=== PATIENT | male | born 1985 | race Caucasian/White ===

== ENCOUNTER 2020-11-01 11:32 | Emergency (ER) | payer MEDICAID, OTHER ==
[2020-11-01 11:41] VITALS: BP 153/60
--- NOTE | 2020-11-01 11:42 | ED General ---
General Chief Complaint: General Problems/Pain Stated Complaint: KNOT ON BACK History of Present Illness Date Seen by Provider: Nov 01, 2020 Time Seen by Provider: 11:42 Initial Comments Patient with a cutaneous abscess on his middle back. Reports has been there for couple days. Reports he has been opening up and having a drain for the last couple days. Patient has another small one on his left chest. He denies any fevers chills or other systemic complaints. He does have a history of recurrent occasional abscesses per him. Allergies and Home Medications Patient Home Medication List Home Medication List Reviewed: Yes Review of Systems Review of Systems Constitutional: no symptoms reported EENTM: no symptoms reported Respiratory: no symptoms reported Cardiovascular: no symptoms reported Gastrointestinal: no symptoms reported Genitourinary: no symptoms reported Skin: see HPI Psychiatric/Neurological: No Symptoms Reported Hematologic/Lymphatic: No Symptoms Reported Past Fpjisld-Ebkgzx-Irsbzr Hx Past Med/Social Hx: Reviewed Nursing Past Med/Soc Hx Physical Exam Vital Signs Capillary Refill : Height, Weight, BMI Height: '" Weight: lbs. oz. kg; BMI Method: General Appearance: No Apparent Distress, WD/WN Respiratory: Lungs Clear Cardiovascular: Regular Rate, Rhythm, No Edema Gastrointestinal: Non Tender Back: No Vertebral Tenderness Extremity: Normal Capillary Refill Neurologic/Psychiatric: Other (irratable, rude, short with staff ) Skin: Other (Small abscess with induration and cellulitis on his upper back.) Progress/Results/Core Measures Suspected Sepsis SIRS Temperature: Pulse: Respiratory Rate: Blood Pressure / Mean: Results/Orders Vital Signs/I&O Capillary Refill : Departure Impression Primary Impression: Abscess of skin and subcutaneous tissue Qualified Codes: L02.212 - Cutaneous abscess of back [any part, except buttock] Disposition: HOME, SELF-CARE Condition: Stable Departure-Patient Inst. Referrals: SELF,KEVIN ALLEN (PCP/Family) Primary Care Physician Patient Instructions: Boil, Adult ED Add. Discharge Instructions: Warm compress to affected area for 20 minutes 3-4 times a day All discharge instructions reviewed with patient and/or family. Voiced understanding. Scripts Sulfamethoxazole/Trimethoprim (Bactrim Ds Tablet) 1 Each Tablet 1 EACH PO BID, #20 TAB Prov: LIBERTAD JURADO DO 11/01/20 LIBERTAD JURADO DO Nov 01, 2020 11:42
[2020-11-01] MEDS ORDERED: SULF1TAB35 PO (11:53)
== END 2020-11-01 12:08 | disposition home or self-care (01) ==
LOC: ER FS 11:35
DX: Z48.02 Encounter for removal of sutures (principal)
CPT/HCPCS: 87070; 87077; 87186; 87205; 99282

== ENCOUNTER 2020-11-05 06:08 | Emergency (ER) | payer MEDICAID ==
[~2020-11-05] VITALS: Ht 175 cm; Wt 81.6 kg
[~2020-11-05 06:08] MED LIST: SULF1TAB35 PO
--- NOTE | 2020-11-05 06:31 | ED Integumentary General ---
General Chief Complaint: Skin/Wound Problems Stated Complaint: PASSING OUT Source: patient Exam Limitations: no limitations (YAN ALEMAN DO) History of Present Illness Date Seen by Provider: Nov 05, 2020 Time Seen by Provider: 06:25 Initial Comments 34-year-old male presents after passing out with shortness morning. He was taking hot shower due to the pain of the abscesses on his back which has been present for almost 2 weeks. Seen a week ago and had incision and draining and was sent home with antibiotic which he never filled. Patient is a diabetic. Started running a fever recently. (YAN ALEMAN DO) Initial Comments 34 yo male presenting with syncope/fainting episode in the shower this morning. He was having pain and was trying to push on the abscess on his left upper back while in hot shower and got light headed and then passed out. He states he is living out of his Van with his girlfriend right now and staying in his uncle's driveway. He is a diabetic and has not been checking his sugars lately. He has been getting a lot of pus from the wound on his back but it keeps getting larger and more painful over the last week. He did not fill the prescription for Bactrim DS from last ED visit due to it being sent to [facility] and today he reports that they can not go on [facility] property so they were not able to fill script. However, from review of sensitivity done on culture from ED visit the MRSA that grew out of wound is resistant to Bactrim. He denies history of MRSA but his Girlfriend states she has had MRSA and gets Hidradenitis and issues with her diabetes as well. Timing/Duration: just prior to arrival (syncopal episode), getting worse (abscess/infection to back getting worse over the last week) Location: torso (left upper back) Possible Cause: no cause identified Associated Symptoms: fever; No flushing, No headache, No hives, No jaundice; malaise; No nasal congestion, No numbness, No pallor, No paresthesia, No petechiae, No sore throat, No tingling (MAURA BANUELOS MD) Allergies and Home Medications Allergies Coded Allergies: No Known Drug Allergies (Unverified , 11/01/20) Home Medications Doxycycline Hyclate 100 Mg Tablet, 100 MG PO BID Prescribed by: MAURA BANUELOS on 11/05/20 0735 Hydrocodone/Acetaminophen 1 Each Tablet, 1 EACH PO Q4H PRN for PAIN-SEVERE (8- 10) Prescribed by: MAURA BANUELOS on 11/05/20 0820 Mupirocin 22 Gm Oint...g., 0.5 GM TP BID Apply thin layer over open areas on infected area of back twice a day for 10 days. Cover with bandage/bandaid. Prescribed by: MAURA BANUELOS on 11/05/20 0819 Patient Home Medication List Home Medication List Reviewed: Yes (YAN ALEMAN DO) Home Medication List Reviewed: Yes (MAURA BANUELOS MD) Review of Systems Review of Systems Constitutional: fever, malaise, weakness Respiratory: No cough, No short of breath Cardiovascular: No chest pain, No edema, No palpitations; syncope Gastrointestinal: No abdominal pain, No nausea, No vomiting Musculoskeletal: back pain; No joint swelling, No neck pain Skin: see HPI, lesions, other (large abscess left upper back) Psychiatric/Neurological: Denies Headache, Denies Numbness, Denies Paresthesia (YAN ALEMAN DO) Constitutional: chills EENTM: no symptoms reported Genitourinary: no symptoms reported Endocrine: Increased Thrist, Increased Urine (MAURA BANUELOS MD) Past Ywgolea-Pciwog-Jihkqq Hx Past Med/Social Hx: Reviewed Nursing Past Med/Soc Hx (YAN ALEMAN DO) Past Med/Social Hx: Reviewed and Corrections made (MAURA BANUELOS MD) Patient Social History 2nd Hand Smoke Exposure: Yes Recent Hopitalizations: No (YAN ALEMAN DO) Smoking Status: Current Everyday Smoker Type Used: Cigarettes (MAURA BANUELOS MD) Seasonal Allergies Seasonal Allergies: No (YAN ALEMAN DO) Past Medical History Surgeries: No Respiratory: No Cardiac: No Neurological: No Genitourinary: No Gastrointestinal: No Musculoskeletal: No Endocrine: Yes Diabetes, Insulin dep HEENT: No Cancer: No Psychosocial: No Integumentary: No Blood Disorders: No (YAN ALEMAN DO) Respiratory: Yes COPD Cardiac: Yes High Cholesterol, Hypertension Neurological: No Genitourinary: No Gastrointestinal: No Musculoskeletal: No Endocrine: Yes Diabetes, Insulin dep HEENT: No Cancer: No Psychosocial: Yes Anxiety, Bipolar, Depression Integumentary: Yes (MRSA Infections) (MAURA BANUELOS MD) Family Medical History Reviewed and Corrections made (MAURA BANUELOS MD) Heart Disease, CAD Under 55 Years Old, CAD Over 55 Years Old, COPD, Diabetes, Hypertension, Lung Disease, Psychiatric Problems, Renal Disease, Stroke (MAURA BANUELOS MD) Physical Exam Vital Signs Vital Signs - First Documented 11/05/20 06:27 Temp 37.5 Pulse 118 Resp 20 B/P (MAP) 145/99 (114) Pulse Ox 93 O2 Delivery Room Air (MAURA BANUELOS MD) Vital Signs Capillary Refill : (YAN ALEMAN DO) General Appearance: WD/WN, no apparent distress Cardiovascular: normal peripheral pulses, regular rate, rhythm, no edema Respiratory: chest non-tender, lungs clear, normal breath sounds Gastrointestinal: non tender, soft Back: other (large abscess left upper back, moderate induration, not pointing) Extremities: non-tender, normal inspection Neurologic/Psychiatric: alert, normal mood/affect, oriented x 3 (YAN ALEMAN DO) Skin Problem Location: torso (left upper back) Skin Problem Character: abscess, erythema, swelling, tenderness, warm (MAURA BANUELOS MD) Procedures/Interventions I&D : Site: left upper back Blade Size: 11 I & D Procedure: sterile dressing applied Progress After obtaining verbal consent from the patient he was given 50 mcg of fentanyl for pain. The wound on his back was measured as 13.8 cm craniocaudal and 9.7 cm across. He had the wound cleaned with ChloraPrep swabs. Then using 1% plain lidocaine a total of 1.5 mL were infiltrated for anesthetic effect. Then using an 11 blade scalpel a single stab incision was made just inferior to the more open area on the abscess. Then using gentle pressure to express the infection with a moderate to large amount of purulent and serosanguineous drainage was expressed. Patient tolerated procedure well without any immediate complication. He did start to feel lightheaded during the procedure and a small break was taken of a minute or 2 before expressing more infection. A clean dry sterile dressing was applied and a sterile gauze and taped with paper tape to hold in place. Counseled on follow-up and return precautions. (MAURA BANUELOS MD) Progress/Results/Core Measures Results/Orders Lab Results Laboratory Tests Test 11/05/20 06:16 11/05/20 06:22 11/05/20 08:20 Range/Units Glucometer 348 H 225 H 70-110 MG/DL White Blood Count 14.6 H 4.3-11.0 10^3/uL Red Blood Count 5.50 4.35-5.85 10^6/uL Hemoglobin 15.7 13.3-17.7 G/DL Hematocrit 44 40-54 % Mean Corpuscular Volume 81 80-99 FL Mean Corpuscular Hemoglobin 29 25-34 PG Mean Corpuscular Hemoglobin Concent 35 32-36 G/DL Red Cell Distribution Width 12.2 10.0-14.5 % Platelet Count 173 130-400 10^3/uL Mean Platelet Volume 9.8 7.4-10.4 FL Immature Granulocyte % (Auto) 0 % Neutrophils (%) (Auto) 83 H 42-75 % Lymphocytes (%) (Auto) 8 L 12-44 % Monocytes (%) (Auto) 9 0-12 % Eosinophils (%) (Auto) 0 0-10 % Basophils (%) (Auto) 0 0-10 % Neutrophils # (Auto) 12.1 H 1.8-7.8 X 10^3 Lymphocytes # (Auto) 1.1 1.0-4.0 X 10^3 Monocytes # (Auto) 1.3 H 0.0-1.0 X 10^3 Eosinophils # (Auto) 0.0 0.0-0.3 10^3/uL Basophils # (Auto) 0.1 0.0-0.1 10^3/uL Immature Granulocyte # (Auto) 0.1 0.0-0.1 10^3/uL Neutrophils % (Manual) 76 % Lymphocytes % (Manual) 11 % Monocytes % (Manual) 4 % Band Neutrophils 9 % Blood Morphology Comment NORMAL Sodium Level 128 L 135-145 MMOL/L Potassium Level 3.4 L 3.6-5.0 MMOL/L Chloride Level 88 L 98-107 MMOL/L Carbon Dioxide Level 27 21-32 MMOL/L Anion Gap 13 5-14 MMOL/L Blood Urea Nitrogen 8 7-18 MG/DL Creatinine 0.64 0.60-1.30 MG/DL Estimat Glomerular Filtration Rate > 60 BUN/Creatinine Ratio 13 Glucose Level 343 H 70-105 MG/DL Lactic Acid Level 1.25 0.50-2.00 MMOL/L Calcium Level 9.0 8.5-10.1 MG/DL Corrected Calcium 9.1 8.5-10.1 MG/DL Total Bilirubin 0.7 0.1-1.0 MG/DL Aspartate Amino Transf (AST/SGOT) 9 5-34 U/L Alanine Aminotransferase (ALT/SGPT) 10 0-55 U/L Alkaline Phosphatase 93 40-136 U/L Total Protein 7.1 6.4-8.2 GM/DL Albumin 3.9 3.2-4.5 GM/DL (MAURA BANUELOS MD) My Orders Orders - MAURA BANUELOS MD Fentanyl Inj (Sublimaze Injection) (11/05/20 07:29) Ns Iv 1000 Ml (Sodium Chloride 0.9%) (11/05/20 07:29) Lidocaine 1% Inj 20 Ml (Xylocaine 1% Inj (11/05/20 07:29) Insulin (Regular) Human (Novolin R (Per (11/05/20 07:29) Acetaminophen Tablet (Tylenol Tablet) (11/05/20 07:31) (MAURA BANUELOS MD) Medications Given in ED Current Medications Medications Dose Ordered Sig/Marissa Route Start Time Stop Time Status Last Admin Dose Admin Vancomycin HCl 1000 mg/Sodium Chloride 250 ml @ 250 mls/hr ONCE ONCE IV 11/05/20 06:45 11/05/20 07:44 DC 11/05/20 06:48 250 MLS/HR (MAURA BANUELOS MD) Vital Signs/I&O 11/05/20 11/05/20 11/05/20 06:27 07:47 07:48 Temp 37.5 38.7 37.5 Pulse 118 Resp 20 B/P (MAP) 145/99 (114) Pulse Ox 93 O2 Delivery Room Air (MAURA BANUELOS MD) Progress Progress Note #1: Time: 07:00 Progress Note I assumed care of patient from Dr. Aleman at shift change. Patient has elevated WBC count but his lactic acid is normal. He does have elevated glucose. Treat with Regular insulin 10 units IV for his hyperglycemia. Obtained verbal consent for I&D to the wound. Fentanyl 50 mcg to help with pain as he is tolerating the Vancomycin. Susceptibility of the MRSA culture shows he should be able to respond to Doxycycline. Pt requesting pain medicine for home as well and stating he does not want to be admitted at this time. Progress Note #2: Time: 07:38 Progress Note pt has a fever so will give acetaminophen to treat that. give 2nd liter of NS to help with tachycardia and hyperglycemia. Pt states he feels he can go home and take antibiotic and pain medicine rather than needing admit. I advised him if not improving in 36-48 hours that he should return or seek medical care as he likely would need admit for IV antibiotics to clear up the infection. Will add on Bactroban for antibiotic ointment to treat his MRSA. Progress Note #3: Time: 08:04 Progress Note Patient tolerated I&D well without immediate complication. Moderate to large amount of purulent and bloody drainage from wound obtained. No new cultures sent since just had this done. Counseled on follow up and return precautions. St ressed importance of follow up with clinic and return for admit if worsening or not improving by end of week/weekend When reviewing prescriptions for home he states he had tried a Hydrocodone 5 mg from family member and it was not helpful for his pain so he requested higher dose. Will change to 10 mg and stressed he has to get antibiotic to treat the infection. (MAURA BANUELOS MD) Transfer of Care Time: 07:00 Care transferred to: Dr Banuelos @ shift change (YAN ALEMAN DO) Departure Impression Primary Impression: MRSA (methicillin resistant Staphylococcus aureus) infection Additional Impressions: Abscess Syncope Qualified Codes: R55 - Syncope and collapse Hyperglycemia due to type 1 diabetes mellitus Disposition: 01 HOME, SELF-CARE Condition: Stable Departure-Patient Inst. Decision time for Depature: 08:16 (MAURA BANUELOS MD) Referrals: KEVIN SHETH MD (PCP/Family) Primary Care Physician Patient Instructions: Abscess Incision and Drainage ED, Boil, Adult ED, Fainting, Adult ED, High Blood Sugar, Adult ED, MRSA (DC) Add. Discharge Instructions: Take antibiotics until gone. Use antibiotic ointment twice a day over the open areas of the infection on your back and apply a bandage or dressing over it. Use Ibuprofen for pain and inflammation. Hydrocodone/Acetaminophen for severe pain. Apply warm pack to area for 10-15 minutes every few hours to help draw the infection out. If not improving or having worsening symptoms over the next 2-3 days then return or seek medical care for admit and IV antibiotics to treat for the MRSA infectio n Carefully watch your diet and use medicine as directed to treat for your diabetes. While fighting infection your sugar will run higher. All discharge instructions reviewed with patient and/or family. Voiced understanding. Scripts Mupirocin (Mupirocin) 22 Gm Oint...g. 0.5 GM TP BID for MRSA infection for 10 Days, #22 GM 0 Refills Apply thin layer over open areas on infected area of back twice a day for 10 days. Cover with bandage/bandaid. Prov: MAURA BANUELOS MD 11/05/20 Hydrocodone/Acetaminophen (Hydrocodone-Acetamin 10-325 mg) 1 Each Tablet 1 EACH PO Q4H PRN for PAIN-SEVERE (8-10) for 3 Days, #18 TAB 0 Refills Prov: MAURA BANUELOS MD 11/05/20 Doxycycline Hyclate (Doxycycline Hyclate) 100 Mg Tablet 100 MG PO BID for MRSA infection for 10 Days, #20 TAB 0 Refills Prov: MAURA BANUELOS MD 11/05/20 Images Torso/Trunk 1 - Cellulitis, Swelling, Tenderness, Other-See Progress Note Progress 13.8 cm craniocaudal x 9.7 cm across erythematous, warm, indurated, tender, swollen abscess to left upper back with a 5 mm diameter ulceration with yellow purulent material present more superior aspect of the abscess. No fluctuance noted. No drainage expressed with just palpation of the abscess. (MAURA BANUELOS MD) YAN ALEMAN DO Nov 05, 2020 06:31 MAURA BANUELOS MD Nov 05, 2020 07:31
[2020-11-05 06:40] LABS: BASOPHILS % (AUTO) 0 % (0-10); EOSINOPHILS % (AUTO) 0 % (0-10); HEMATOCRIT 44 % (40-54); HEMOGLOBIN 15.7 G/DL (13.3-17.7); LYMPHOCYTES # (AUTO) 1.1 X 10^3 (1.0-4.0); LYMPHOCYTES % (AUTO) 8 % (12-44); MEAN CORPUSCULAR HEMOGLOBIN 29 PG (25-34); MEAN CORPUSCULAR HGB CONC 35 G/DL (32-36); MEAN CORPUSCULAR VOLUME 81 FL (80-99); MEAN PLATELET VOLUME 9.8 FL (7.4-10.4); MONOCYTES # (AUTO) 1.3 X 10^3 (0.0-1.0); MONOCYTES % (AUTO) 9 % (0-12); NEUTROPHILS # (AUTO) 12.1 X 10^3 (1.8-7.8); NEUTROPHILS % (AUTO) 83 % (42-75); PLATELET COUNT 173 10^3/uL (130-400); WHITE BLOOD COUNT 14.6 10^3/uL (4.3-11.0)
[2020-11-05 06:41] LABS: BASOPHILS # (AUTO) 0.1 10^3/uL (0.0-0.1)
[2020-11-05] MEDS ORDERED: NS IV 1000 ML 1,000 ML IV SCH (06:45)
[2020-11-05] MEDS ORDERED: VANCOMYCIN INJECTION 1,000 MG in NS (IVPB) 250 ML IV ONE (06:45)
[2020-11-05 07:00] LABS: ALANINE AMINOTRANSFERASE 10 U/L (0-55); ALBUMIN 3.9 GM/DL (3.2-4.5); ALKALINE PHOSPHATASE 93 U/L (40-136); BILIRUBIN,TOTAL 0.7 MG/DL (0.1-1.0); BUN/CREATININE RATIO 13; CARBON DIOXIDE 27 MMOL/L (21-32); CHLORIDE 88 MMOL/L (98-107); CREATININE SERUM 0.64 MG/DL (0.60-1.30); GFR ESTIMATED > 60; GLUCOSE 343 MG/DL (70-105); POTASSIUM 3.4 MMOL/L (3.6-5.0); SODIUM 128 MMOL/L (135-145); TOTAL PROTEIN 7.1 GM/DL (6.4-8.2)
[2020-11-05 07:01] LABS: BAND NEUTROPHILS 9 %; LYMPHOCYTES % (MANUAL) 11 %; MONOCYTES % (MANUAL) 4 %; NEUTROPHILS % (MANUAL) 76 %; RBC MORPH NORMAL
[2020-11-05] MEDS ORDERED: fentaNYL INJ 100 MCG/2 ML AMP IVP STA (07:29)
[2020-11-05] MEDS ORDERED: NS IV 1000 ML 1,000 ML IV STA (07:29)
[2020-11-05] MEDS ORDERED: inSUlin (REGULAR) HUMAN 1 UNIT/0.01 ML (CHARGE PER UNIT) IV STA (07:29)
[2020-11-05] MEDS ORDERED: LIDOCAINE 1% INJ 20 ML 20 ML VIAL INJ STA (07:29)
[2020-11-05] MEDS ORDERED: ACETAMINOPHEN 500 MG TAB (TYLENOL) PO STA (07:31)
[2020-11-05] MEDS ORDERED: ACHD5005 PO (07:35)
[2020-11-05] MEDS ORDERED: DOXY100T2 PO (07:35)
[2020-11-05] MEDS ORDERED: MUPI22OI2 TP (08:19)
[2020-11-05] MEDS ORDERED: HYDR-3820 PO (08:19)
[2020-11-05 08:30] VITALS: BP 148/73
== END 2020-11-05 08:30 | disposition home or self-care (01) ==
LOC: EDUNIT# 06:08 → ER FS 06:09
DX: A49.02 Methicillin resistant Staphylococcus aureus infection, unspecified site (principal); L02.212 Cutaneous abscess of back [any part, except buttock and flank]; R55 Syncope and collapse; E10.65 Type 1 diabetes mellitus with hyperglycemia; J44.9 Chronic obstructive pulmonary disease, unspecified; I10 Essential (primary) hypertension; F17.210 Nicotine dependence, cigarettes, uncomplicated
CPT/HCPCS: 10060; 36415; 80053; 82947; 83605; 85007; 85027; 87040; 96374; 96375

== ENCOUNTER 2020-11-11 17:23 | Emergency (ER) | payer MEDICAID ==
[~2020-11-11 17:23] MED LIST changes: +ACHD5005 PO; +DOXY100T2 PO; +HYDR-3820 PO; +MUPI22OI2 TP
[2020-11-11] MEDS ORDERED: ACHD5005 PO (18:08)
[2020-11-11] MEDS ORDERED: DOXY100T2 PO (18:08)
--- NOTE | 2020-11-11 18:10 | ED Integumentary General ---
General Chief Complaint: Skin/Wound Problems Stated Complaint: BACK INFECTION Nursing Triage Note: Patient presents to the ED with c/o of abcess to his left upper back. Patient reports he has been seen in the ED two times prior to this visit and I & D to the wound. Patient reports that the abcess has improved with antibiotic use but has stopped draining. History of Present Illness Date Seen by Provider: Nov 11, 2020 Time Seen by Provider: 17:30 Initial Comments 34-year-old male with a nonhealing abscess of the left upper back. Seen here recently for incision and drainage without packing and sent home with doxycycline. States fluid was drained until yesterday when it stopped now presents with increased pain, redness and swelling of the abscess. Did see his PCP yesterday, but no intervention was needed as it was draining spontaneously from the I&D. Currently taking doxycycline Allergies and Home Medications Allergies Coded Allergies: No Known Drug Allergies (Unverified , 11/01/20) Home Medications Doxycycline Hyclate 100 Mg Tablet, 100 MG PO BID Prescribed by: MAURA BANUELOS on 11/05/20 0735 Doxycycline Hyclate 100 Mg Tablet, 100 MG PO BID Prescribed by: YAN LANIER on 11/11/20 1808 Hydrocodone/Acetaminophen 1 Each Tablet, 1 EACH PO Q4H PRN for PAIN-SEVERE (8- 10) Prescribed by: MAURA BANUELOS on 11/05/20 0820 Hydrocodone/Acetaminophen 1 Each Tablet, 1 EACH PO Q4H Prescribed by: YAN LANIER on 11/11/20 1809 Mupirocin 22 Gm Oint...g., 0.5 GM TP BID Apply thin layer over open areas on infected area of back twice a day for 10 days. Cover with bandage/bandaid. Prescribed by: MAURA BANUELOS on 11/05/20 0819 Patient Home Medication List Home Medication List Reviewed: Yes Review of Systems Review of Systems Constitutional: No fever, No malaise, No weakness Respiratory: no symptoms reported Cardiovascular: no symptoms reported Musculoskeletal: back pain; No joint pain, No joint swelling, No neck pain Skin: see HPI, other (abscess, left upper back) Past Mifmgni-Muactg-Yuegyu Hx Patient Social History Tobacco Use?: Yes Substance use?: No Alcohol Use?: No Pt feels they are or have been: No Seasonal Allergies Seasonal Allergies: No Past Medical History Surgeries: No Respiratory: Yes COPD Cardiac: Yes High Cholesterol, Hypertension Neurological: No Genitourinary: No Gastrointestinal: No Musculoskeletal: No Endocrine: Yes Diabetes, Insulin dep HEENT: No Cancer: No Psychosocial: Yes Anxiety, Bipolar, Depression Integumentary: Yes (MRSA Infections) Blood Disorders: No Family Medical History Heart Disease, CAD Under 55 Years Old, CAD Over 55 Years Old, COPD, Diabetes, Hypertension, Lung Disease, Psychiatric Problems, Renal Disease, Stroke Physical Exam Vital Signs Vital Signs - First Documented 11/11/20 17:40 Temp 36.8 Pulse 96 Resp 16 B/P (MAP) 143/85 (104) Pulse Ox 97 O2 Delivery Room Air Capillary Refill : Less Than 3 Seconds General Appearance: WD/WN, no apparent distress Back: no CVA tenderness, no vertebral tenderness, other (large abscess left upper back. fluctuant, not-pointing. indurated w moderate erythema. NOT draining.) Neurologic/Psychiatric: no motor/sensory deficits, alert, normal mood/affect Skin: No jaundice, No rash Procedures/Interventions I&D : Blade Size: 11 I & D Procedure: betadine prep Packing/Drain: Idoform / Progress left upper back , large abscess, I&D with expression of large amount purulent fluid. packed and wound dressed Progress/Results/Core Measures Results/Orders My Orders Orders - YAN LANIER DO Hydrocodone/Apap 5/325 Tablet (Lortab 5 (11/11/20 18:15) Vital Signs/I&O 11/11/20 17:40 Temp 36.8 Pulse 96 Resp 16 B/P (MAP) 143/85 (104) Pulse Ox 97 O2 Delivery Room Air Blood Pressure Mean: 104 Progress Progress Note : Progress Note patient threatened me that "if I didn't give him some good pain medication he was going to kick my ass" Departure Impression Primary Impression: Abscess Disposition: 01 HOME, SELF-CARE Condition: Improved Departure-Patient Inst. Decision time for Depature: 18:07 Referrals: KEVIN SHETH MD (PCP/Family) Primary Care Physician Patient Instructions: Abscess Incision and Drainage ED Add. Discharge Instructions: Follow up with Dr Sheth in 2 days for re-packing your wound All discharge instructions reviewed with patient and/or family. Voiced understanding. Scripts Hydrocodone/Acetaminophen (Hydrocodone-Acetamin 5-325 mg) 1 Each Tablet 1 EACH PO Q4H for Abdominal Pain, #10 TAB Prov: YAN LANIER DO 11/11/20 Doxycycline Hyclate (Doxycycline Hyclate) 100 Mg Tablet 100 MG PO BID, #20 TAB 0 Refills Prov: YAN LANIER DO 11/11/20 YAN LANIER DO Nov 11, 2020 18:10
[2020-11-11] MEDS ORDERED: HYDROcodone/APAP 5 MG/325 MG (LORTAB) TAB PO ONE (18:15)
[2020-11-11 18:30] VITALS: BP 143/85
== END 2020-11-11 18:22 | disposition home or self-care (01) ==
LOC: EDUNIT# 17:23 → ER FS 17:24
DX: L02.212 Cutaneous abscess of back [any part, except buttock and flank] (principal); J44.9 Chronic obstructive pulmonary disease, unspecified; I10 Essential (primary) hypertension; E11.9 Type 2 diabetes mellitus without complications
CPT/HCPCS: 10061

== ENCOUNTER 2020-11-15 07:32 | Emergency (ER) | payer MEDICAID ==
[~2020-11-15 07:32] MED LIST changes: -SULF1TAB35 PO; +SULF1TAB38 PO
[2020-11-15 07:38] VITALS: BP 138/88
--- NOTE | 2020-11-15 07:44 | ED Integumentary General ---
General Chief Complaint: Skin/Wound Problems Stated Complaint: NEEDS BACK REPACKED History of Present Illness Date Seen by Provider: Nov 15, 2020 Time Seen by Provider: 07:39 Initial Comments 34 yo male presents with large abscess on back, pt presents for repacking of abscess. pt reports he is seeing his primary care provider everyother day for repacking and was told to present to ER for repacking over the weekend. pt currently on doxycyline. no fever, chills, n/v or other systemic complaints. Allergies and Home Medications Allergies Coded Allergies: No Known Drug Allergies (Unverified , 11/01/20) Home Medications Doxycycline Hyclate 100 Mg Tablet, 100 MG PO BID Prescribed by: MAURA BANUELOS on 11/05/20 0735 Doxycycline Hyclate 100 Mg Tablet, 100 MG PO BID Prescribed by: YAN LANIER on 11/11/20 1808 Hydrocodone/Acetaminophen 1 Each Tablet, 1 EACH PO Q4H PRN for PAIN-SEVERE (8- 10) Prescribed by: MAURA BANUELOS on 11/05/20 0820 Hydrocodone/Acetaminophen 1 Each Tablet, 1 EACH PO Q4H Prescribed by: YAN LANIER on 11/11/20 1809 Mupirocin 22 Gm Oint...g., 0.5 GM TP BID Apply thin layer over open areas on infected area of back twice a day for 10 days. Cover with bandage/bandaid. Prescribed by: MAURA BANUELOS on 11/05/20 0819 Patient Home Medication List Home Medication List Reviewed: Yes Review of Systems Review of Systems Constitutional: No chills, No fever EENTM: no symptoms reported Respiratory: no symptoms reported Cardiovascular: no symptoms reported Gastrointestinal: no symptoms reported Genitourinary: no symptoms reported Musculoskeletal: see HPI Skin: see HPI Psychiatric/Neurological: See HPI Hematologic/Lymphatic: See HPI Past Aeiigtr-Vsgqjx-Tlaykp Hx Seasonal Allergies Seasonal Allergies: No Past Medical History Surgeries: No Respiratory: Yes COPD Cardiac: Yes High Cholesterol, Hypertension Neurological: No Genitourinary: No Gastrointestinal: No Musculoskeletal: No Endocrine: Yes Diabetes, Insulin dep HEENT: No Cancer: No Psychosocial: Yes Anxiety, Bipolar, Depression Integumentary: Yes (MRSA Infections) Blood Disorders: No Family Medical History Heart Disease, CAD Under 55 Years Old, CAD Over 55 Years Old, COPD, Diabetes, Hypertension, Lung Disease, Psychiatric Problems, Renal Disease, Stroke Physical Exam Vital Signs Capillary Refill : General Appearance: WD/WN, no apparent distress Cardiovascular: normal peripheral pulses, regular rate, rhythm Respiratory: lungs clear, normal breath sounds Gastrointestinal: non tender, soft Back: no vertebral tenderness Extremities: normal range of motion, non-tender Skin Problem Location: torso (upper back ) Skin Problem Character: abscess Progress/Results/Core Measures Progress Progress Note : Progress Note pt with large subcut abscess on upper back with packing in place, packing was removed, copious amt of purulant drainage was expressed and abscess was repacked with gauze. pt tolerated well. pt to cont current abx, follow up with pcp next week for continued outpt care Departure Impression Primary Impression: Abscess of skin and subcutaneous tissue Qualified Codes: L02.212 - Cutaneous abscess of back [any part, except buttock] Disposition: HOME, SELF-CARE Condition: Stable Departure-Patient Inst. Referrals: SELF,KEVIN ALLEN (PCP/Family) Primary Care Physician Patient Instructions: Methicillin-Resistant Staphylococcus aureus (MRSA), Wound Care (DC) Add. Discharge Instructions: Follow up with your primary care provider mon or tues of next week. All discharge instructions reviewed with patient and/or family. Voiced understanding. LIBERTAD JURADO DO Nov 15, 2020 07:44
== END 2020-11-15 08:15 | disposition home or self-care (01) ==
LOC: EDUNIT# 07:32 → ER FS 07:35
DX: L02.212 Cutaneous abscess of back [any part, except buttock and flank] (principal); J44.9 Chronic obstructive pulmonary disease, unspecified; I10 Essential (primary) hypertension; E11.9 Type 2 diabetes mellitus without complications
CPT/HCPCS: 99282

== ENCOUNTER 2020-11-22 11:15 | Emergency (ER) | payer MEDICAID ==
[~2020-11-22] VITALS: Ht 182 cm; Wt 78.0 kg
[2020-11-22 11:24] VITALS: BP 132/97
--- NOTE | 2020-11-22 11:41 | ED Integumentary General ---
General Chief Complaint: Skin/Wound Problems Stated Complaint: BACK WOUND Nursing Triage Note: PT STATES HE IS HERE FOR HIS WEEKLY DRESSING CHANGE ON HIS UPPER BACK. Source: patient Exam Limitations: no limitations History of Present Illness Date Seen by Provider: Nov 22, 2020 Time Seen by Provider: 11:39 Initial Comments patient presents to "repack his abscess I&D". Has not seen his PCP as instructed, now multiple ER visits for the same. See previous notes for HPI Allergies and Home Medications Allergies Coded Allergies: No Known Drug Allergies (Unverified , 11/01/20) Home Medications Doxycycline Hyclate 100 Mg Tablet, 100 MG PO BID Prescribed by: MAURA BANUELOS on 11/05/20 0735 Doxycycline Hyclate 100 Mg Tablet, 100 MG PO BID Prescribed by: YAN LANIER on 11/11/20 1808 Hydrocodone/Acetaminophen 1 Each Tablet, 1 EACH PO Q4H PRN for PAIN-SEVERE (8- 10) Prescribed by: MAURA BANUELOS on 11/05/20 0820 Hydrocodone/Acetaminophen 1 Each Tablet, 1 EACH PO Q4H Prescribed by: YAN LANIER on 11/11/20 1809 Mupirocin 22 Gm Oint...g., 0.5 GM TP BID Apply thin layer over open areas on infected area of back twice a day for 10 days. Cover with bandage/bandaid. Prescribed by: MAURA BANUELOS on 11/05/20 0819 Patient Home Medication List Home Medication List Reviewed: Yes Review of Systems Review of Systems Constitutional: no symptoms reported Skin: other (skin abscess - I&D and packing) Past Ycbilfx-Jueghu-Xvsiji Hx Patient Social History Tobacco Use?: No Use of E-Cig and/or Vaping dev: No Substance use?: No Alcohol Use?: No Pt feels they are or have been: No Seasonal Allergies Seasonal Allergies: No Past Medical History Surgeries: No Respiratory: Yes COPD Cardiac: Yes High Cholesterol, Hypertension Neurological: No Genitourinary: No Gastrointestinal: No Musculoskeletal: No Endocrine: Yes Diabetes, Insulin dep HEENT: No Cancer: No Psychosocial: Yes Anxiety, Bipolar, Depression Integumentary: Yes (MRSA Infections) Blood Disorders: No Family Medical History Heart Disease, CAD Under 55 Years Old, CAD Over 55 Years Old, COPD, Diabetes, Hypertension, Lung Disease, Psychiatric Problems, Renal Disease, Stroke Physical Exam Vital Signs Vital Signs - First Documented 11/22/20 11:24 Temp 36.5 Pulse 103 Resp 16 B/P (MAP) 132/97 (109) Pulse Ox 96 O2 Delivery Room Air Capillary Refill : Less Than 3 Seconds General Appearance: WD/WN, no apparent distress Skin: normal color, warm/dry, other (healing wound- decreased erythema) Procedures/Interventions I&D : Progress Squeak Rattle And Leak Repairer- removed packing and re-inserted 6 inches of 1/2 iodoform gauze. pt tolerated well. minimal purulent wound drainage Progress/Results/Core Measures Results/Orders Vital Signs/I&O 11/22/20 11:24 Temp 36.5 Pulse 103 Resp 16 B/P (MAP) 132/97 (109) Pulse Ox 96 O2 Delivery Room Air Blood Pressure Mean: 109 Departure Impression Primary Impression: Wound check, abscess Disposition: 01 HOME, SELF-CARE Condition: Stable Departure-Patient Inst. Decision time for Depature: 12:19 Referrals: SELF,KEVIN ALLEN (PCP/Family) Primary Care Physician Patient Instructions: Wound Incision and Drainage (DC) Add. Discharge Instructions: follow up with your PCP for further care of your abscess All discharge instructions reviewed with patient and/or family. Voiced understanding. YAN LANIER DO Nov 22, 2020 11:41
== END 2020-11-22 12:30 | disposition home or self-care (01) ==
LOC: EDUNIT# 11:15 → ER FS 11:16
DX: Z48.01 Encounter for change or removal of surgical wound dressing (principal); J44.9 Chronic obstructive pulmonary disease, unspecified; I10 Essential (primary) hypertension; E11.9 Type 2 diabetes mellitus without complications

== ENCOUNTER → 2020-11-26 | Outpatient (CLI) | payer MEDICAID | LOC: WOUNDCARE 13:09 | PROVIDERS: ATTEND Surgery | DX: L72.3 Sebaceous cyst (principal); L02.219 Cutaneous abscess of trunk, unspecified | CPT/HCPCS: 99214 ==

== ENCOUNTER 2020-11-30 20:37 | Emergency (ER) | payer MEDICAID ==
[~2020-11-30] VITALS: Ht 182.9 cm; Wt 79.6 kg
[2020-11-30 20:53] VITALS: BP 125/83
--- NOTE | 2020-11-30 20:57 | ED General ---
General Stated Complaint: BACK PAIN History of Present Illness Date Seen by Provider: Nov 30, 2020 Time Seen by Provider: 20:45 Initial Comments 34-year-old male presents for dressing change for a large abscess on his back. Patient sees wound care. He is most have his wound repacked and changed every 2 days. He was last seen on Tuesday. Presents today for the dressing change. Patient with no other complaints. Allergies and Home Medications Allergies Coded Allergies: No Known Drug Allergies (Unverified , 11/01/20) Home Medications Doxycycline Hyclate 100 Mg Tablet, 100 MG PO BID Prescribed by: MAURA BANUELOS on 11/05/20 0735 Doxycycline Hyclate 100 Mg Tablet, 100 MG PO BID Prescribed by: YAN LANIER on 11/11/20 1808 Hydrocodone/Acetaminophen 1 Each Tablet, 1 EACH PO Q4H PRN for PAIN-SEVERE (8- 10) Prescribed by: MAURA BANUELOS on 11/05/20 0820 Hydrocodone/Acetaminophen 1 Each Tablet, 1 EACH PO Q4H Prescribed by: YAN LANIER on 11/11/20 1809 Mupirocin 22 Gm Oint...g., 0.5 GM TP BID Apply thin layer over open areas on infected area of back twice a day for 10 days. Cover with bandage/bandaid. Prescribed by: MAURA BANUELOS on 11/05/20 0819 Patient Home Medication List Home Medication List Reviewed: Yes Review of Systems Review of Systems Constitutional: see HPI EENTM: no symptoms reported Respiratory: no symptoms reported Cardiovascular: no symptoms reported Gastrointestinal: no symptoms reported Genitourinary: no symptoms reported Musculoskeletal: no symptoms reported Skin: see HPI Psychiatric/Neurological: No Symptoms Reported Hematologic/Lymphatic: No Symptoms Reported Past Lphosik-Qlfgac-Smqnxc Hx Seasonal Allergies Seasonal Allergies: No Past Medical History Surgeries: No Respiratory: Yes COPD Cardiac: Yes High Cholesterol, Hypertension Neurological: No Genitourinary: No Gastrointestinal: No Musculoskeletal: No Endocrine: Yes Diabetes, Insulin dep HEENT: No Cancer: No Psychosocial: Yes Anxiety, Bipolar, Depression Integumentary: Yes (MRSA Infections) Blood Disorders: No Family Medical History Heart Disease, CAD Under 55 Years Old, CAD Over 55 Years Old, COPD, Diabetes, Hypertension, Lung Disease, Psychiatric Problems, Renal Disease, Stroke Physical Exam Vital Signs Capillary Refill : Height, Weight, BMI Height: '" Weight: lbs. oz. 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 Patient's wound with significant improvement from last wound change which I seen him. Patient should continue to follow-up with wound care. Patient discharged in stable condition Departure Impression Primary Impression: Wound check, abscess Disposition: 01 HOME, SELF-CARE Condition: Stable Departure-Patient Inst. Referrals: SELF,KEVIN ALLEN (PCP/Family) Primary Care Physician Add. Discharge Instructions: Continue following up with your food specialist along with your primary care provider and general surgeon for outpatient management LIBERTAD JURADO DO Nov 30, 2020 20:57
== END 2020-11-30 21:05 | disposition home or self-care (01) ==
LOC: EDUNIT# 20:37 → ER FS 20:39
DX: Z48.00 Encounter for change or removal of nonsurgical wound dressing (principal); I10 Essential (primary) hypertension; E11.9 Type 2 diabetes mellitus without complications; J44.9 Chronic obstructive pulmonary disease, unspecified
CPT/HCPCS: 99282

== ENCOUNTER 2023-03-01 01:51 | Emergency (ER) | payer MEDICAID ==
[~2023-03-01] VITALS: Ht 182.9 cm; Wt 86.3 kg
[2023-03-01 01:58] VITALS: BP 149/101
[2023-03-01] MEDS ORDERED: LIDOCAINE 2% w/EPI 1:100,000 20 ML VIAL ONE (02:08)
[2023-03-01] MEDS ORDERED: CLINDAMYCIN 150 MG CAPSULE PO ONE (02:15)
[2023-03-01] MEDS ORDERED: LIDOCAINE 2% w/EPI 1:100,000 20 ML VIAL INJ ONE (02:15)
[2023-03-01] MEDS ORDERED: HYDROcodone/ACETAMINOPHEN 5 MG/325 MG TABLET PO ONE (02:15)
--- NOTE | 2023-03-01 02:17 | ED GU-Male ---
General Chief Complaint: - Reproductive Stated Complaint: GROIN|PAIN Source: patient Exam Limitations: no limitations History of Present Illness Date Seen by Provider: Mar 01, 2023 Time Seen by Provider: 01:53 Initial Comments 37-year-old male with past medical history of diabetes coming in due to an abscess on the left side of his scrotum. Has been there for several days, he squeezed out quite a bit of purulent drainage over the past couple of days. Today he noticed that it got a bit bigger. The skin is a little red, no black skin, no "rice crispy" be feeling. He has normal sensation in the area. Denies any fever or systemic illness such as chills or body aches. Allergies and Home Medications Allergies Coded Allergies: No Known Drug Allergies (Unverified , 11/01/20) Patient Home Medication List Home Medication List Reviewed: Yes Clindamycin HCl (Clindamycin HCl) 300 Mg Capsule, 300 MG PO QID Prescribed by: VIKASH BOLAÑOS on 03/01/23 0239 Doxycycline Hyclate (Doxycycline Hyclate) 100 Mg Tablet, 100 MG PO BID Prescribed by: MAURA BANUELOS on 11/05/20 0735 Doxycycline Hyclate (Doxycycline Hyclate) 100 Mg Tablet, 100 MG PO BID Prescribed by: YAN LANIER on 11/11/20 180 Hydrocodone/Acetaminophen (Hydrocodone-Acetamin 10-325 mg) 1 Each Tablet, 1 EACH PO Q4H PRN for PAIN-SEVERE (8-10) Prescribed by: MAURA BANUELOS on 11/05/20 0820 Hydrocodone/Acetaminophen (Hydrocodone-Acetamin 5-325 mg) 1 Each Tablet, 1 EACH PO Q4H Prescribed by: YAN LANIER on 11/11/20 180 Hydrocodone/Acetaminophen (Hydrocodone-Acetamin 5-325 mg) 5 Mg-325 Mg Tablet, 1 TAB PO Q8H PRN for PAIN-MODERATE (5-7) Prescribed by: VIKASH BOLAÑOS on 03/01/23 0239 Mupirocin (Mupirocin) 22 Gm Oint...g., 0.5 GM TP BID Prescribed by: MAURA BANUELOS on 11/05/20 0819 Review of Systems Review of Systems Constitutional: No fever EENTM: no symptoms reported Respiratory: no symptoms reported Cardiovascular: no symptoms reported Gastrointestinal: no symptoms reported Genitourinary: see HPI Musculoskeletal: no symptoms reported Skin: no symptoms reported Psychiatric/Neurological: No Symptoms Reported Endocrine: No Symptoms Reported Past Dljtuss-Wvwjxl-Xkreyr Hx Patient Social History Tobacco Use?: Yes Seasonal Allergies Seasonal Allergies: No Past Medical History Surgeries: No Respiratory: Yes COPD Cardiac: Yes High Cholesterol, Hypertension Neurological: No Genitourinary: No Gastrointestinal: No Musculoskeletal: No Endocrine: Yes Diabetes, Insulin dep HEENT: No Cancer: No Psychosocial: Yes Anxiety, Bipolar, Depression Integumentary: Yes (MRSA Infections) Blood Disorders: No Family Medical History Heart Disease, CAD Under 55 Years Old, CAD Over 55 Years Old, COPD, Diabetes, Hypertension, Lung Disease, Psychiatric Problems, Renal Disease, Stroke Physical Exam Vital Signs Vital Signs - First Documented 03/01/23 01:58 Temp 37.2 Pulse 142 Resp 18 B/P (MAP) 149/101 (117) Capillary Refill : Height, Weight, BMI Height: '" Weight: lbs. oz. kg; 23.00 BMI Method: General Appearance: WD/WN, no apparent distress HEENT: PERRL/EOMI, normal ENT inspection, pharynx normal Neck: non-tender, full range of motion, supple, normal inspection Cardiovascular: regular rate, rhythm, no edema Respiratory: chest non-tender, lungs clear, normal breath sounds, no respiratory distress, no accessory muscle use Gastrointestinal: normal bowel sounds, non tender, soft; No guarding, No rebound Genital/Rectal: other (Area of fluctuance and redness of the left scrotum, skin has normal color otherwise, normal sensation, no crepitus) Back: normal inspection Extremities: non-tender, normal inspection, no pedal edema Neurologic/Psychiatric: no motor/sensory deficits, alert, normal mood/affect Skin: normal color, warm/dry Procedures/Interventions I&D : Blade Size: 11 Progress The left part of his scrotum was prepped with chlorhexidine, 8 cc of 2% lidocaine with epinephrine were infiltrated into the area with a 27-gauge needle. Afterwards a cruciform incision was made to keep the wound open and there is serosanguineous drainage. I did a repeat ultrasound and the fluid was gone that needed to be drained Progress/Results/Core Measures Suspected Sepsis SIRS Temperature: Pulse: Respiratory Rate: Blood Pressure / Mean: Results/Orders My Orders Orders - VIKASH BOLAÑOS MD Hydrocodone/Apap 5/325 Tablet (Hydrocod (03/01/23 02:15) Clindamycin Capsule (Clindamycin Capsule (03/01/23 02:15) Lidocaine 2% W/Epi 1:100,000 (Xylocaine/ (03/01/23 02:15) Lidocaine 2% W/Epi 1:100,000 (Xylocaine/ (03/01/23 02:08) Medications Given in ED Current Medications Medications Dose Ordered Sig/Marissa Route Start Time Stop Time Status Last Admin Dose Admin Acetaminophen/ Hydrocodone Bitart 1 ea ONCE ONCE PO 03/01/23 02:15 03/01/23 02:16 DC 03/01/23 02:12 1 EA Clindamycin HCl 300 mg ONCE ONCE PO 03/01/23 02:15 03/01/23 02:16 DC 03/01/23 02:11 300 MG Lidocaine/ Epinephrine 20 ml ONCE ONCE INJ 03/01/23 02:15 03/01/23 02:16 DC 03/01/23 02:12 20 ML Vital Signs/I&O 03/01/23 01:58 Temp 37.2 Pulse 142 Resp 18 B/P (MAP) 149/101 (117) Capillary Refill : Progress Note : Progress Note 37yoM with above history coming in due to an abscess to his left groin. ABCs were intact and vitals were stable on presentation although he was tachycardic. I discussed with the patient that given he is diabetic that I am concerned this could potentially develop into necrotizing fasciitis, although at this point the time course of it getting worse over several days makes it less likely. The skin also still appears healthy, has normal red color to it, and his not having any crepitus which is also reassuring. Despite this, I discussed with the patient that lab work and a CT scan would be beneficial to see the depth of the wound to see if he potentially needs transferred to a urologist. I discussed the risk of missing this diagnosis would be significant dismemberment and potentially . The patient states that he knows his body, he gets these abscesses all the time, and he knows it is just a simple abscess. He does show that he understands the risk, and he signed a refusal of care for the advanced imaging and laboratory work. He did allow me to give him oral antibiotics and did allow me to drain it to the best of my ability. I discussed with him if it worsens at all he needs to present immediately to an ER. I was able to visualize the drainage with ultrasound, and see the full depth of the fluid. I also did not see any obvious air on the ultrasound that would be concerning for necrotizing fasciitis. Antibiotics and pain medication were sent to his pharmacy as well. Departure Impression Primary Impression: Groin abscess Disposition: 01 HOME, SELF-CARE Condition: Stable Departure-Patient Inst. Decision time for Depature: 02:40 Referrals: SELFKEVIN MD (PCP/Family) Primary Care Physician Patient Instructions: Abscess Incision and Drainage ED Add. Discharge Instructions: We did drain the abscess and made the incision more like across to help keep it open so it will continue to drain. He will be on antibiotics for the next 10 days which may cause diarrhea. If you develop fever, or if begins getting rapidly worse, we will need to be seen again in ER. Otherwise, it will probably take a couple days to calm down, may get even a little bit more swollen after draining and pushing on it today. Scripts Clindamycin HCl (Clindamycin HCl) 300 Mg Capsule 300 MG PO QID for 10 Days, #40 CAP Prov: VIKASH BOLAÑOS MD 03/01/23 Hydrocodone/Acetaminophen (Hydrocodone-Acetamin 5-325 mg) 5 Mg-325 Mg Tablet 1 TAB PO Q8H PRN for PAIN-MODERATE (5-7) for 3 Days, #9 TAB Prov: VIKASH BOLAÑOS MD 03/01/23 Work/School Note: Work Release Form Date Seen in the Emergency Department: Mar 01, 2023 Return to Work: Mar 02, 2023 Restrictions: No Restrictions VIKASH BOLAÑOS MD Mar 01, 2023 02:17
[2023-03-01] MEDS ORDERED: ACHD5005 PO (02:39)
[2023-03-01] MEDS ORDERED: CLIN-144 PO (02:39)
== END 2023-03-01 02:45 | disposition home or self-care (01) ==
LOC: EDUNIT# 01:51 → ER FS 01:53
DX: L02.214 Cutaneous abscess of groin (principal); E11.9 Type 2 diabetes mellitus without complications; Z79.4 Long term (current) use of insulin
CPT/HCPCS: 99283

== ENCOUNTER 2023-03-02 18:46 | Emergency (ER) | payer MEDICAID ==
[~2023-03-02 18:46] MED LIST changes: +CLIN-144 PO
[2023-03-02] MEDS ORDERED: LIDOCAINE 1% INJ 20 ML VIAL INJ STA (19:35)
--- NOTE | 2023-03-02 20:45 | ED Integumentary General ---
General Chief Complaint: Skin/Wound Problems Stated Complaint: CYST ON TESTICLES Nursing Triage Note: Patient arrival to ED per POV ambulating to ED 2 for triage. Patient was initially attempted to be roomed at 1900 but had left the waiting room to outside. Pt wants re-evaluation of L scrotal cyst that was evaluated here a few days ago. Pt reports it needs to be opened to drain as it did not respond to previous tx 03/01. Pt is currently on Clindamycin less than 36 hrs. Source: patient History of Present Illness Date Seen by Provider: Mar 02, 2023 Time Seen by Provider: 20:05 Initial Comments 37-year-old male presenting with complaints of continued pain and swelling to the left scrotum. He was seen global clinical leader on the and had an I&D performed on that visit. By report in the note he had serosanguineous drainage present. He was started on clindamycin with a history of MRSA and being diabetic. He felt that the main cyst had not been cut into and was not draining appropriately. Timing/Duration: getting worse Severity: moderate Location: genitalia (Left scrotum) Possible Cause: no cause identified Associated Symptoms: change in skin texture, edema, swelling/mass/lumps (Swelling and induration to the left scrotum) Allergies and Home Medications Allergies Coded Allergies: No Known Drug Allergies (Unverified , 11/01/20) Patient Home Medication List Home Medication List Reviewed: Yes Clindamycin HCl (Clindamycin HCl) 300 Mg Capsule, 300 MG PO QID Prescribed by: VIKASH BOLAÑOS on 03/01/23 0239 Doxycycline Hyclate (Doxycycline Hyclate) 100 Mg Tablet, 100 MG PO BID Prescribed by: MAURA BANUELOS on 11/05/20 0735 Doxycycline Hyclate (Doxycycline Hyclate) 100 Mg Tablet, 100 MG PO BID Prescribed by: YAN LANIER on 11/11/20 1808 Hydrocodone/Acetaminophen (Hydrocodone-Acetamin 10-325 mg) 1 Each Tablet, 1 EACH PO Q4H PRN for PAIN-SEVERE (8-10) Prescribed by: MAURA BANUELOS on 11/05/20 0820 Hydrocodone/Acetaminophen (Hydrocodone-Acetamin 5-325 mg) 1 Each Tablet, 1 EACH PO Q4H Prescribed by: YAN LANIER on 11/11/20 1809 Hydrocodone/Acetaminophen (Hydrocodone-Acetamin 5-325 mg) 5 Mg-325 Mg Tablet, 1 TAB PO Q8H PRN for PAIN-MODERATE (5-7) Prescribed by: VIKASH BOLAÑOS on 03/01/23 0239 Mupirocin (Mupirocin) 22 Gm Oint...g., 0.5 GM TP BID Prescribed by: MAURA BANUELOS on 11/05/20 0819 Review of Systems Review of Systems Constitutional: chills, fever (Subjective) EENTM: no symptoms reported Respiratory: no symptoms reported Cardiovascular: no symptoms reported Gastrointestinal: no symptoms reported Genitourinary: see HPI Skin: see HPI Past Rgzglho-Bdehxa-Rxqmuf Hx Patient Social History Tobacco Use?: Yes Tobacco type used: Cigarettes Smoking Status: Current Everyday Smoker Substance use?: No Alcohol Use?: No Pt feels they are or have been: No Immunizations Up To Date Influenza Vaccine Up-to-Date: No; Not Current Seasonal Allergies Seasonal Allergies: No Past Medical History Surgery/Hospitalization HX: DM Type I, COPD, HTN, recurrent boils Surgeries: No Respiratory: Yes COPD Cardiac: Yes High Cholesterol, Hypertension Neurological: No Genitourinary: No Gastrointestinal: No Musculoskeletal: No Endocrine: Yes Diabetes, Insulin dep HEENT: No Cancer: No Psychosocial: Yes Anxiety, Bipolar, Depression Integumentary: Yes (MRSA Infections) Blood Disorders: No Family Medical History Heart Disease, CAD Under 55 Years Old, CAD Over 55 Years Old, COPD, Diabetes, Hypertension, Lung Disease, Psychiatric Problems, Renal Disease, Stroke Physical Exam Vital Signs Vital Signs - First Documented 03/02/23 19:24 Temp 36.7 Pulse 110 Resp 20 B/P (MAP) 133/107 (116) O2 Delivery Room Air Capillary Refill : Less Than 3 Seconds General Appearance: WD/WN, no apparent distress Cardiovascular: normal peripheral pulses Skin: warm/dry Skin Problem Location: other (Left scrotum with erythema and induration. There is some bleeding from prior incision.) Procedures/Interventions I&D : Site: Left scrotum Blade Size: 11 I & D Procedure: betadine prep Progress After obtaining verbal consent from the patient the left scrotum was cleaned with Betadine scrub soap. For anesthesia 1% plain lidocaine was infiltrated. He had a total of 1.5 mL infiltrated into the area around the prior incision. He requested time for the medicine to kick in so he was allowed to rest for 12 to 15 minutes until the medicine could be achieving better anesthetic effect. Then using an 11 blade scalpel a single incision approximately 6 to 7 mm was made with sensation of puncturing through a cyst or wall structure. There was an initial gush of purulent fluid and then he had serosanguineous drainage. With further pressure on the surrounding tissue there was a small breast showing of some purulent fluid and serosanguineous fluid. New gauze was applied and patient tolerated procedure well without any immediate complication. We will have him continue with the antibiotics and continue to apply heat to try and help the area drain better. Wound culture was sent of the serosanguineous and purulent drainage that was obtained. Progress/Results/Core Measures Results/Orders My Orders Orders - MAURA BANUELOS MD Lidocaine 1% Inj 20 Ml (Xylocaine 1% Inj (03/02/23 19:35) Wound Culture (03/02/23 19:35) Vital Signs/I&O 03/02/23 03/02/23 19:24 20:47 Temp 36.7 36.7 Pulse 110 99 Resp 20 20 B/P (MAP) 133/107 (116) 132/96 O2 Delivery Room Air Room Air Departure Impression Primary Impression: Scrotal abscess Disposition: HOME, SELF-CARE Condition: Stable Departure-Patient Inst. Decision time for Depature: 20:44 Referrals: SELF,KEVIN ALLEN (PCP/Family) Primary Care Physician Patient Instructions: Abscess Incision and Drainage ED Add. Discharge Instructions: Continue antibiotics until gone. Hot packs to help with the abscess draining. All discharge instructions reviewed with patient and/or family. Voiced underst anding. MAURA BANUELOS MD Mar 02, 2023 20:45
[2023-03-02 20:47] VITALS: BP 132/96
== END 2023-03-02 20:47 | disposition home or self-care (01) ==
LOC: EDUNIT# 18:46 → ER FS 18:48
DX: N49.2 Inflammatory disorders of scrotum (principal); E10.9 Type 1 diabetes mellitus without complications; F17.210 Nicotine dependence, cigarettes, uncomplicated
CPT/HCPCS: 10060; 87070; 87205